=== PATIENT | female | born 1970 | race Caucasian/White ===

== ENCOUNTER 2023-02-25 10:43 | Outpatient (REF) | payer OTHER, SELFPAY ==
[2023-02-25 15:31] LABS: HCT 39.6 % (36.0-46.0); HGB 12.9 g/dL (11.2-15.7); MCHC 32.6 % (32.0-36.0); MCV 89 fL (80-95); Platelet Count 261 10^3/uL (130-400); RBC 4.45 10^6/uL (3.93-5.22); RDW 12.9 % (11.7-14.6); RDW-SD 41.8 fL; WBC 6.54 10^3/uL (4.4-10.8)
[2023-02-25 16:50] LABS: ALT 33 U/L (14-59); AST 16 U/L (15-37); Albumin 3.9 g/dL (3.4-5.0); Alkaline Phosphatase 78 U/L (46-116); Anion Gap 4.5 mmol/L (3-11); BUN 13 mg/dL (7-18); Bilirubin, Total 0.8 mg/dL (0.2-1.0); CO2 30.5 mmol/L (21.0-32.0); CREATININE 0.7 mg/dL (0.55-1.02); Calcium 9.2 mg/dL (8.5-10.1); Calculated LDL 77 mg/dL (<100); Chloride 104 mmol/L (98-107); Cholesterol 147 mg/dL (<200); Glucose 106 mg/dL (74-106); HDL Cholesterol 42 mg/dL (40-60); Potassium 4.6 mmol/L (3.5-5.1); Sodium 139 mmol/L (136-145); TSH (W/Ref FT4) 3.03 uIU/mL (0.36-3.74); Total Protein 7.5 g/dL (6.4-8.2); Triglyceride 141 mg/dL (<150)
[2023-02-25 18:32] LABS: Hemoglobin A1C 5.1 % (<5.7)
== END 2023-02-25 10:44 | disposition home or self-care (01) ==
LOC: NCHCN 10:43
PROVIDERS: PCP Family Medicine; Visit Provider Nurse Practitioner Family
DX: R53.83 Other fatigue (principal); E66.8 Other obesity; Z13.220 Encounter for screening for lipoid disorders; Z13.1 Encounter for screening for diabetes mellitus; R35.0 Frequency of micturition
CPT/HCPCS: 80053; 80061; 85027; 83036; 84443